=== PATIENT | male | born 1945 | race Hispanic/Latino ===

== ENCOUNTER 2018-07-15 10:52 | Emergency (ER) | payer OTHER ==
[2018-07-15 11:56] LABS: BASOPHILS % (AUTO) 1.2 % (0.0-5.0); EOSINOPHILS % (AUTO) 0.9 % (0.0-8.0); HEMATOCRIT 36.6 % (42-54); MEAN CORPUSCULAR HEMOGLOBIN 25.3 pg (27.0-33.0); MEAN CORPUSCULAR HGB CONC 32.2 g/dL (32.0-36.0); MEAN CORPUSCULAR VOLUME 78.6 fL (79-99); MONOCYTES % (AUTO) 8.1 % (3.0-13.0); NEUTROPHILS % (AUTO) 71.8 % (40.0-77.0); PLATELET COUNT (AUTO) 480 K/uL (130-400); RED BLOOD CELL COUNT(AUTO) 4.66 MIL/uL (4.50-6.20); RED CELL DISTRIBUTION WIDTH 14.7 % (11.0-15.5)
[2018-07-15 12:18] LABS: CREATININE 1.1 mg/dL (0.5-1.5); POTASSIUM 4.7 mmol/L (3.5-5.1)
[2018-07-15 12:23] LABS: ALBUMIN 3.3 g/dL (3.5-5.0); BILIRUBIN,TOTAL 0.2 mg/dL (0.2-1.0); TOTAL PROTEIN, SERUM 8.4 g/dL (6.0-8.3)
[2018-07-15] MEDS ORDERED: KETOROLAC TROMETHAMINE 30MG/ML ONE (12:28)
[2018-07-15] MEDS ORDERED: ONDANSETRON HCL 4 MG/2 ML VIAL ONE (12:28)
[2018-07-15] MEDS ORDERED: HYDROCODONE/ACETAMINOPHEN 5/325 MG TAB ONE (12:29)
[2018-07-15 12:48] LABS: APPEARANCE,URINE Clear (CLEAR); BILIRUBIN,URINE Negative (NEGATIVE); COLOR,URINE Yellow (YELLOW); GLUCOSE, URINE (UA) >=1000 mg/dL (NEGATIVE); KETONES,URINE Negative (NEGATIVE); LEUKOCYTE ESTERASE ,URINE Negative (NEGATIVE); NITRATE,URINE Negative (NEGATIVE); OCCULT BLOOD,URINE Negative (NEGATIVE); PH,URINE 5.5 (5.0-8.0); PROTEIN,URINE Negative (NEGATIVE); UROBILINOGEN,URINE 0.2 mg/dL (0.2-1.0)
[2018-07-15 13:56] LABS: BACTERIA,URINE Rare /HPF (None Seen); RBC,URINE None Seen /HPF (0-1); SQUAMOUS EPITHELIAL CELL,UR None Seen /HPF (0-2); WBC,URINE None Seen /HPF (0-1)
== END 2018-07-15 14:46 | disposition home or self-care (01) ==
LOC: EDH 10:52
DX: L40.50 Arthropathic psoriasis, unspecified (principal); I10 Essential (primary) hypertension; E78.5 Hyperlipidemia, unspecified; E11.9 Type 2 diabetes mellitus without complications; Z98.890 Other specified postprocedural states
CPT/HCPCS: 36415; 80053; 81001; 85025; 96374; 96375; 99283; J1885; J2405

== ENCOUNTER 2018-07-23 05:38 | Day surgery (SDC) | payer OTHER ==
[2018-07-20 14:35] VITALS: BP 106/61
[2018-07-20 14:50] LABS: BASOPHILS % (AUTO) 0.6 % (0.0-5.0); EOSINOPHILS % (AUTO) 2.1 % (0.0-8.0); HEMATOCRIT 34.1 % (42-54); LYMPHOCYTES % (AUTO) 21.3 % (21.0-51.0); MEAN CORPUSCULAR HEMOGLOBIN 25.1 pg (27.0-33.0); MEAN CORPUSCULAR HGB CONC 31.8 g/dL (32.0-36.0); MONOCYTES % (AUTO) 9.9 % (3.0-13.0); NEUTROPHILS % (AUTO) 66.1 % (40.0-77.0); PLATELET COUNT (AUTO) 436 K/uL (130-400); RED BLOOD CELL COUNT(AUTO) 4.32 MIL/uL (4.50-6.20); WHITE BLOOD COUNT (AUTO) 10.2 K/uL (4.8-10.8)
[2018-07-20 15:03] LABS: INR 0.93 (0.85-1.15); PROTHROMBIN TIME 9.8 SEC (9.6-11.6)
[2018-07-20 15:12] LABS: POTASSIUM 4.5 mmol/L (3.5-5.1)
[2018-07-20 15:34] LABS: APPEARANCE,URINE Clear (CLEAR); BILIRUBIN,URINE Negative (NEGATIVE); COLOR,URINE Yellow (YELLOW); GLUCOSE, URINE (UA) 250 mg/dL (NEGATIVE); KETONES,URINE Trace mg/dL (NEGATIVE); LEUKOCYTE ESTERASE ,URINE Negative (NEGATIVE); NITRATE,URINE Negative (NEGATIVE); OCCULT BLOOD,URINE Negative (NEGATIVE); PROTEIN,URINE POS 1+ (NEGATIVE)
[2018-07-20 15:43] LABS: BACTERIA,URINE Rare /HPF (None Seen); RBC,URINE 0-1 /HPF (0-1); SQUAMOUS EPITHELIAL CELL,UR Rare /HPF (0-2); WBC,URINE 0-1 /HPF (0-1)
[2018-07-23] VITALS (12 sets, daily range): BP systolic 104–141; BP diastolic 51–75
[~2018-07-23] VITALS: Ht 172.7 cm; Wt 94.2 kg
[~2018-07-23 05:38] MED LIST: AMLO-340 PO; ASPI-1181 PO; CARV6.25 PO; DAPA5TAB PO; EZET1TAB66 PO; FERS325 PO; METF-446 PO; MULT-1285 PO; NAPR-1023 PO; SODIUM CHLORIDE 0.9% 500ML 500 ML IV SCH; SULF500T8 PO; TAMS0.4C32 PO; VITAMIN B12 PO; [UNRECOGNIZED DRUG - OTHER] PO
[2018-07-23] MEDS ORDERED: SODIUM CHLORIDE 0.9% 1000ML 1,000 ML IV ONE (06:41)
[2018-07-23] MEDS ORDERED: BIVALIRUDIN 250 MG/VIAL IV ONE (07:17)
[2018-07-23] MEDS ORDERED: LIDOCAINE HCL 1% 20 ML VIAL ONE (07:17)
[2018-07-23] MEDS ORDERED: IOHEXOL-350 50ML VIAL IV ONE (07:18)
[2018-07-23] MEDS ORDERED: NITROGLYCERIN 5 MG/ML 10 ML VIAL IV ONE (07:18)
[2018-07-23] MEDS ORDERED: IOHEXOL 350 MG/ML 100ML INFUS..BTL IV ONE ×2 (07:18→08:39)
[2018-07-23] MEDS ORDERED: MIDAZOLAM HCL 1 MG/ML 2ML VIAL ONE (07:42)
[2018-07-23] MEDS ORDERED: ASPIRIN 325MG EC TAB 325 MG TABLET.DR PO ONE (08:11)
[2018-07-23] MEDS ORDERED: PRASUGREL HCL 10 MG TABLET ONE ×2 (08:11→08:12)
[2018-07-23] MEDS ORDERED: SODIUM CHLORIDE 0.9% 1000ML 1,000 ML IV SCH (09:01)
[2018-07-23] MEDS ORDERED: ACETAMINOPHEN-CODEINE 300/30MG TAB PO PRN ×2 (09:15)
== END 2018-07-23 15:20 | disposition home or self-care (01) ==
LOC: DAH 05:38
PROVIDERS: ATTEND Internal Medicine Cardiovascular Disease
DX: I25.708 Atherosclerosis of coronary artery bypass graft(s), unspecified, with other forms of angina pectoris (principal); I25.5 Ischemic cardiomyopathy; Z79.01 Long term (current) use of anticoagulants; Z79.899 Other long term (current) drug therapy; E78.5 Hyperlipidemia, unspecified; M06.9 Rheumatoid arthritis, unspecified; E66.9 Obesity, unspecified; E11.9 Type 2 diabetes mellitus without complications; D50.9 Iron deficiency anemia, unspecified; Z68.30 Body mass index [BMI] 30.0-30.9, adult; Z79.4 Long term (current) use of insulin; Z79.84 Long term (current) use of oral hypoglycemic drugs; R06.09 Other forms of dyspnea
CPT/HCPCS: 36415; 71045; 80048; 81001; 82948 ×2; 85025; 85610; 85730; 92920; 93005; 93459; A4606; C1760; C1769 ×2; C1887; C1894 ×2; J0583; J1644 ×2; J2250; J3490; J7030; Q9965 ×3; Q9967 ×3; 99156; 99157

== ENCOUNTER 2021-08-15 06:04 | Emergency (ER) | payer OTHER ==
[~2021-08-15] VITALS: Ht 170.2 cm; Wt 83.9 kg
[~2021-08-15 06:04] MED LIST changes: -AMLO-340 PO; -ASPI-1181 PO; +ASPI-556 PO; +CARV3.1262 PO; -CARV6.25 PO; +CLOP75TA14 PO; +CYAN100084 PO; +EZET-59 PO; -EZET1TAB66 PO; +FERR325T29 PO; -FERS325 PO; +FURO20TA4 PO; +ISOS20TA85 PO; -MULT-1285 PO; -NAPR-1023 PO; +NITR0.4T50 SL; +SACU1TAB PO; -SODIUM CHLORIDE 0.9% 500ML 500 ML IV SCH; +SPIR25TA PO; +TAMS-1 PO; -TAMS0.4C32 PO; -VITAMIN B12 PO; -[UNRECOGNIZED DRUG - OTHER] PO
[2021-08-15 06:39] LABS: APPEARANCE,URINE Clear (CLEAR); BILIRUBIN,URINE Negative (NEGATIVE); COLOR,URINE Yellow (YELLOW); GLUCOSE, URINE (UA) Negative (NEGATIVE); KETONES,URINE Trace mg/dL (NEGATIVE); LEUKOCYTE ESTERASE ,URINE Trace (NEGATIVE); NITRATE,URINE Negative (NEGATIVE); OCCULT BLOOD,URINE Large (NEGATIVE); PH,URINE 5.5 (5.0-8.0); PROTEIN,URINE POS 1+ mg/dL (NEGATIVE); UROBILINOGEN,URINE 0.2 mg/dL (0.2-1.0)
[2021-08-15 06:53] LABS: BASOPHILS % (AUTO) 0.5 % (0.0-5.0); EOSINOPHILS % (AUTO) 1.7 % (0.0-8.0); HEMATOCRIT 28.5 % (42-54); LYMPHOCYTES % (AUTO) 9.5 % (21.0-51.0); MEAN CORPUSCULAR HEMOGLOBIN 22.5 pg (27.0-33.0); MEAN CORPUSCULAR HGB CONC 29.1 g/dL (32.0-36.0); MEAN CORPUSCULAR VOLUME 77.2 fL (79-99); MONOCYTES % (AUTO) 8.8 % (3.0-13.0); NEUTROPHILS % (AUTO) 79.1 % (40.0-77.0); PLATELET COUNT (AUTO) 281 K/uL (130-400); RED BLOOD CELL COUNT(AUTO) 3.69 MIL/uL (4.50-6.20); RED CELL DISTRIBUTION WIDTH 17.3 % (11.0-15.5); WHITE BLOOD COUNT (AUTO) 8.4 K/uL (4.8-10.8)
[2021-08-15 06:58] LABS: BACTERIA,URINE Rare /HPF (None Seen); RBC,URINE 26-50 /HPF (0-1); WBC,URINE 0-1 /HPF (0-1)
[2021-08-15 07:05] LABS: CREATININE 0.8 mg/dL (0.5-1.5); POTASSIUM 3.8 mmol/L (3.5-5.1)
[2021-08-15] MEDS ORDERED: TAMS-1 PO (07:36)
[2021-08-15 07:52] VITALS: BP 116/51
== END 2021-08-15 08:04 | disposition home or self-care (01) ==
LOC: EDH 06:04
DX: N40.1 Benign prostatic hyperplasia with lower urinary tract symptoms (principal); R33.8 Other retention of urine; D64.9 Anemia, unspecified; I11.0 Hypertensive heart disease with heart failure; I50.9 Heart failure, unspecified; E11.9 Type 2 diabetes mellitus without complications; Z79.899 Other long term (current) drug therapy; Z79.84 Long term (current) use of oral hypoglycemic drugs; Z79.82 Long term (current) use of aspirin
CPT/HCPCS: 36415; 51702; 80048; 81001; 85025

== ENCOUNTER 2021-11-24 05:45 | Emergency (ER) | payer OTHER ==
[~2021-11-24] VITALS: Ht 170.2 cm; Wt 77.1 kg
[~2021-11-24 05:45] MED LIST changes: -CARV3.1262 PO; +CARV6.2579 PO; +CELE100C97 PO; -CLOP75TA14 PO; -CYAN100084 PO; +DAPA10TA PO; -DAPA5TAB PO; -FURO20TA4 PO; +FURO40TA5 PO; -ISOS20TA85 PO; +LEFL10TA19 PO; -METF-446 PO; +METF500S7 PO; +[UNRECOGNIZED DRUG - OTHER] PO
[2021-11-24 05:46] VITALS: BP 137/61
[2021-11-24] MEDS ORDERED: CIPR-278 PO (06:18)
[2021-11-24 06:30] LABS: APPEARANCE,URINE CLEAR (CLEAR); BILIRUBIN,URINE NEGATIVE (NEGATIVE); COLOR,URINE YELLOW (YELLOW); GLUCOSE, URINE (UA) 250 mg/dL (NEGATIVE); KETONES,URINE NEGATIVE (NEGATIVE); LEUKOCYTE ESTERASE ,URINE NEGATIVE (NEGATIVE); NITRATE,URINE NEGATIVE (NEGATIVE); OCCULT BLOOD,URINE TRACE-INTACT (NEGATIVE); PROTEIN,URINE TRACE mg/dL (NEGATIVE); UROBILINOGEN,URINE 0.2 mg/dL (0.2-1.0)
[2021-11-24 07:09] LABS: BACTERIA,URINE Rare /HPF (None Seen); RBC,URINE 0-1 /HPF (0-1); SQUAMOUS EPITHELIAL CELL,UR Rare /HPF (0-2); WBC,URINE 0-1 /HPF (0-1)
== END 2021-11-24 07:02 | disposition home or self-care (01) ==
LOC: EDH 05:45
DX: R33.9 Retention of urine, unspecified (principal); M19.90 Unspecified osteoarthritis, unspecified site; I11.0 Hypertensive heart disease with heart failure; I50.9 Heart failure, unspecified; E11.9 Type 2 diabetes mellitus without complications; Z98.890 Other specified postprocedural states; Z79.899 Other long term (current) drug therapy; Z79.84 Long term (current) use of oral hypoglycemic drugs; Z79.82 Long term (current) use of aspirin
CPT/HCPCS: 51702; 81001

== ENCOUNTER 2021-11-25 14:40 | Emergency (ER) | payer OTHER, MEDICARE ==
[~2021-11-25] VITALS: Ht 170.2 cm; Wt 77.1 kg
[~2021-11-25 14:40] MED LIST changes: +CIPR-278 PO
[2021-11-25 14:43] VITALS: BP 93/40
== END 2021-11-25 15:15 | disposition home or self-care (01) ==
LOC: EDH 14:40
DX: Z46.6 Encounter for fitting and adjustment of urinary device (principal); R31.9 Hematuria, unspecified; M19.90 Unspecified osteoarthritis, unspecified site; Z79.1 Long term (current) use of non-steroidal anti-inflammatories (NSAID); Z79.82 Long term (current) use of aspirin; Z79.84 Long term (current) use of oral hypoglycemic drugs; Z79.899 Other long term (current) drug therapy; Z95.1 Presence of aortocoronary bypass graft
CPT/HCPCS: 99281

== ENCOUNTER 2022-12-10 03:06 | Emergency (ER) | payer MEDICARE, OTHER ==
[~2022-12-10] VITALS: Ht 172.7 cm; Wt 71.2 kg
[~2022-12-10 03:06] MED LIST changes: -METF500S7 PO; +METF500S9 PO
[2022-12-10 04:08] LABS: APPEARANCE,URINE CLEAR (CLEAR); BILIRUBIN,URINE NEGATIVE (NEGATIVE); COLOR,URINE YELLOW (YELLOW); GLUCOSE, URINE (UA) >=1000 mg/dL (NEGATIVE); KETONES,URINE NEGATIVE (NEGATIVE); LEUKOCYTE ESTERASE ,URINE NEGATIVE Leu/uL (NEGATIVE); NITRATE,URINE NEGATIVE (NEGATIVE); OCCULT BLOOD,URINE NEGATIVE (NEGATIVE); PROTEIN,URINE 10 mg/dL (NEGATIVE); UROBILINOGEN,URINE 0.2 mg/dL (0.2-1.0)
[2022-12-10 04:16] LABS: MUCUS,URINE RARE LPF (None Seen); RBC,URINE 0-1 /HPF (0-1); WBC,URINE 0-1 /HPF (0-1)
[2022-12-10 04:38] VITALS: BP 112/65; PULSE 71; RESP 16; O2SAT 97
== END 2022-12-10 04:40 | disposition home or self-care (01) ==
LOC: EDH 03:06
DX: R33.8 Other retention of urine (principal); I11.0 Hypertensive heart disease with heart failure; I50.9 Heart failure, unspecified; E11.9 Type 2 diabetes mellitus without complications; Z79.1 Long term (current) use of non-steroidal anti-inflammatories (NSAID); Z79.69 Long term (current) use of other immunomodulators and immunosuppressants; Z79.82 Long term (current) use of aspirin; Z79.84 Long term (current) use of oral hypoglycemic drugs; Z79.899 Other long term (current) drug therapy; Z95.1 Presence of aortocoronary bypass graft
CPT/HCPCS: 51702; 81001

== ENCOUNTER 2022-12-21 06:52 | Emergency (ER) | payer OTHER ==
[~2022-12-21] VITALS: Ht 172.7 cm; Wt 72.6 kg
[2022-12-21 07:53] LABS: HEMATOCRIT 27.2 % (42-54); MEAN CORPUSCULAR HEMOGLOBIN 25.7 pg (27.0-33.0); MEAN CORPUSCULAR HGB CONC 30.5 g/dL (32.0-36.0); MEAN CORPUSCULAR VOLUME 84.2 fL (79-99); PLATELET COUNT (AUTO) 257 K/uL (130-400); RED BLOOD CELL COUNT(AUTO) 3.23 MIL/uL (4.50-6.20); RED CELL DISTRIBUTION WIDTH 18.3 % (11.0-15.5); WHITE BLOOD COUNT (AUTO) 9.4 K/uL (4.8-10.8)
[2022-12-21 07:59] LABS: CREATININE 0.9 mg/dL (0.5-1.5); POTASSIUM 3.7 mmol/L (3.5-5.1)
[2022-12-21 08:03] LABS: ALBUMIN 2.5 g/dL (3.5-5.0); BILIRUBIN,TOTAL 0.4 mg/dL (0.2-1.0); MAGNESIUM 1.9 mg/dL (1.80-2.40); TOTAL PROTEIN, SERUM 6.6 g/dL (6.0-8.3)
[2022-12-21 08:07] LABS: APPEARANCE,URINE CLEAR (CLEAR); BILIRUBIN,URINE NEGATIVE (NEGATIVE); COLOR,URINE YELLOW (YELLOW); GLUCOSE, URINE (UA) >=1000 mg/dL (NEGATIVE); KETONES,URINE NEGATIVE (NEGATIVE); LEUKOCYTE ESTERASE ,URINE NEGATIVE Leu/uL (NEGATIVE); NITRATE,URINE NEGATIVE (NEGATIVE); OCCULT BLOOD,URINE NEGATIVE (NEGATIVE); PH,URINE 5.5 (5.0-8.0); PROTEIN,URINE TRACE mg/dL (NEGATIVE); UROBILINOGEN,URINE 0.2 mg/dL (0.2-1.0)
[2022-12-21 08:10] LABS: ADD UA MICROSCOPIC YES
[2022-12-21 08:28] LABS: BACTERIA,URINE Rare /HPF (None Seen); RBC,URINE None Seen /HPF (0-1); SQUAMOUS EPITHELIAL CELL,UR 0-2 /HPF (0-2); WBC,URINE 0-1 /HPF (0-1)
[2022-12-21 08:29] LABS: RENAL EPITHELIAL CELLS,URINE Few /HPF (None Seen)
[2022-12-21 08:47] VITALS: BP 113/53; PULSE 83; RESP 18; O2SAT 98
[2022-12-21 09:22] LABS: BASOPHILS # (AUTO) 0.07 K/uL (0.00-0.20); BASOPHILS % (AUTO) 0.8 % (0.0-5.0); EOSINOPHILS # (AUTO) 0.36 K/uL (0.00-0.70); EOSINOPHILS % (AUTO) 3.9 % (0.0-8.0); IMMATURE GRANULOCYTE ABSOLUTE 0.03 K/uL (0-1); LYMPHOCYTES # (AUTO) 1.3 K/uL (1.0-4.8); LYMPHOCYTES % (AUTO) 14.1 % (21.0-51.0); MONOCYTES % (AUTO) 10.7 % (3.0-13.0); NEUTROPHILS # (AUTO) 6.5 K/uL (1.8-7.7); NEUTROPHILS % (AUTO) 70.2 % (40.0-77.0)
== END 2022-12-21 09:38 | disposition home or self-care (01) ==
LOC: EDH 06:52
DX: R33.9 Retention of urine, unspecified (principal); D64.9 Anemia, unspecified; I25.10 Atherosclerotic heart disease of native coronary artery without angina pectoris; E11.9 Type 2 diabetes mellitus without complications; I50.9 Heart failure, unspecified; Z79.1 Long term (current) use of non-steroidal anti-inflammatories (NSAID); Z79.69 Long term (current) use of other immunomodulators and immunosuppressants; Z79.82 Long term (current) use of aspirin; Z79.84 Long term (current) use of oral hypoglycemic drugs; Z79.899 Other long term (current) drug therapy
CPT/HCPCS: 36415; 51702; 80053; 81001; 83735; 85025

== ENCOUNTER 2023-03-03 06:18 | Day surgery (SDC) | payer MEDICARE ==
[2023-03-01 13:03] LABS: BASOPHILS # (AUTO) 0.08 K/uL (0.00-0.20); BASOPHILS % (AUTO) 0.9 % (0.0-5.0); EOSINOPHILS % (AUTO) 3.5 % (0.0-8.0); IMMATURE GRANULOCYTE ABSOLUTE 0.05 K/uL (0-1); LYMPHOCYTES # (AUTO) 1.2 K/uL (1.0-4.8); LYMPHOCYTES % (AUTO) 14.5 % (21.0-51.0); MEAN CORPUSCULAR HGB CONC 29.7 g/dL (32.0-36.0); MEAN CORPUSCULAR VOLUME 87.5 fL (79-99); MONOCYTES % (AUTO) 11.4 % (3.0-13.0); NEUTROPHILS # (AUTO) 5.9 K/uL (1.8-7.7); NEUTROPHILS % (AUTO) 69.1 % (40.0-77.0); PLATELET COUNT (AUTO) 351 K/uL (130-400); RED BLOOD CELL COUNT(AUTO) 3.77 MIL/uL (4.50-6.20); RED CELL DISTRIBUTION WIDTH 18.4 % (11.0-15.5); WHITE BLOOD COUNT (AUTO) 8.5 K/uL (4.8-10.8)
[2023-03-01 13:09] LABS: POTASSIUM 4.4 mmol/L (3.5-5.1)
[2023-03-01 13:40] VITALS: BP 114/56; PULSE 114; RESP 17
[~2023-03-03] VITALS: Ht 172.7 cm; Wt 67.0 kg
[2023-03-03] VITALS (16 sets, daily range): BP systolic 96–126; BP diastolic 41–65; PULSE 78–97; RESP 12–18
[~2023-03-03 06:18] MED LIST changes: +0.9%NACL 1000ML 1,000 ML IV ONE; +CARV12.511 PO; -CARV6.2579 PO; +CEFTRIAXONE 1G VIAL ONE; +CELE-146 PO; -CELE100C97 PO; +CHOL500050 PO; -CIPR-278 PO; +CYAN10007 IJ; -DAPA10TA PO; +EMPA25TA PO; -EZET-59 PO; +EZET10TA48 PO; +FURO20TA4 PO; -FURO40TA5 PO; +GENTAMICIN 80 MG/NS 100 ML PB 100 ML IV ONE; -LEFL10TA19 PO; +LEFL20TA18 PO; -METF500S9 PO; -SACU1TAB PO; +SACU1TAB7 PO; +SIMV-46 PO; -SPIR25TA PO; +SPIR25TA6 PO; +VIT1CAPS47 PO; -[UNRECOGNIZED DRUG - OTHER] PO
[2023-03-03] MEDS ORDERED: ROCURONIUM 10MG/1ML SYR 10 MG/ML ML ONE (07:04)
[2023-03-03] MEDS ORDERED: SUCCINYLCHOLINE 200MG/10ML SYR ONE (07:04)
[2023-03-03] MEDS ORDERED: MIDAZOLAM HCL 1 MG/ML 2ML VIAL ONE (07:04)
[2023-03-03] MEDS ORDERED: ONDANSETRON 4MG INJ ONE (07:04)
[2023-03-03] MEDS ORDERED: PROPOFOL 10 MG/ML 20ML VIAL IV ONE (07:04)
[2023-03-03] MEDS ORDERED: FENTANYL CITRATE PF 50 MCG/1 ML 2ML VIAL ONE (07:04)
[2023-03-03] MEDS ORDERED: LIDOCAINE PF 100MG/5ML (2%) SYRINGE 5ML ONE (07:04)
[2023-03-03] MEDS ORDERED: DEXAMETHASONE SOD PHOSPHATE 10MG/ML 1ML VIAL ONE (07:04)
[2023-03-03] MEDS ORDERED: PHENYLEPHRINE HCL 10 MG/ML 1ML VIAL IV ONE (07:17)
[2023-03-03] MEDS ORDERED: EPHEDRINE SULFATE 50 MG/ML AMPULE ONE (07:19)
[2023-03-03] MEDS ORDERED: NEOSTIGMINE 5MG/5ML SYR IV ONE (09:42)
[2023-03-03] MEDS ORDERED: GLYCOPYRROLATE 1 MG/5 ML SYRINGE ONE (09:42)
[2023-03-03] MEDS ORDERED: PHENAZOPYRIDINE HCL 200 MG TABLET ONE (11:11)
== END 2023-03-03 12:15 | disposition home or self-care (01) ==
LOC: DAH 06:18
PROVIDERS: ATTEND Urology
DX: N40.1 Benign prostatic hyperplasia with lower urinary tract symptoms (principal); R33.8 Other retention of urine; N32.89 Other specified disorders of bladder; N30.20 Other chronic cystitis without hematuria; I11.0 Hypertensive heart disease with heart failure; I50.9 Heart failure, unspecified; E11.9 Type 2 diabetes mellitus without complications; J44.9 Chronic obstructive pulmonary disease, unspecified; G47.30 Sleep apnea, unspecified; E78.5 Hyperlipidemia, unspecified; L40.8 Other psoriasis; M06.9 Rheumatoid arthritis, unspecified; I25.10 Atherosclerotic heart disease of native coronary artery without angina pectoris; Z79.899 Other long term (current) drug therapy; Z79.01 Long term (current) use of anticoagulants; Z98.890 Other specified postprocedural states
CPT/HCPCS: 80048; 85025; 36415; 52648; 82948 ×2; 88305; A6260; A4663; J7030 ×2; J7120; A4354; A4340; J3010; J0330; J3490 ×2; J1100; J2710; J2001; J0696; J2250; J2704; J2405; J2371; J1580; A4358; A4930; A4215; A4223; A4222; A4221; A4510; A4600